=== PATIENT | male | born 1940 | race Caucasian/White ===

== ENCOUNTER 2018-02-06 11:03 | Outpatient (CLI) | payer MEDICARE ==
--- NOTE | 2018-02-06 15:06 | MRI ---
MRI LUMBAR SPINE: 02/06/2018 HISTORY: Back pain. Intervertebral disk disorder with radiculopathy. COMPARISON: None. TECHNIQUE: Multiplanar, multisequence MR imaging of the lumbar spine is provided without contrast. FINDINGS: No focal area of STIR hyperintensity seen to suggest the presence of fracture. There is a Schmorl's node involving the inferior endplate of the L2 vertebral body with adjacent increased STIR signal, erickson ggesting associated degenerative edema. No significant anterolisthesis or retrolisthesis is noted. Assuming five lumbar type vertebral bodies, the conus medullaris terminates at the T12-L1 level. T11-T12: Disk space narrowing and disk desiccation. There is mild disk bulge with small central dis k protrusion. There is mild bilateral facet hypertrophy and anterior osteophyte formation. No signi ficant central canal or neural foraminal stenosis. Benign hemangioma noted at the T12 level. T12-L1: Disk space narrowing and disk desiccation with anterior osteophyte formation noted. There i s a small foraminal protrusion on the left. There is no significant central canal or neural foramina l stenosis. L1-L2: Moderate bilateral facet hypertrophy, left greater than right. There is disk space narrowing , disk desiccation, and anterior osteophyte formation. There is a foraminal disk protrusion on the l eft, There is no significant central canal or neural foraminal stenosis. L2-L3: There is severe bilateral facet hypertrophy with hypertrophy of the ligamentum flavum. There is disk bulge with a moderate degree of central canal stenosis secondary to disk bulge and ligamentu m flavum hypertrophy. There is mild neural foraminal stenosis on the left. No significant right maribell ral foraminal stenosis. L3-L4: Moderate bilateral facet hypertrophy and hypertrophy of the ligamentum flavum. There is disk space narrowing, disk desiccation, and mild disk bulge. No significant central canal or neural fora juno stenosis. L4-L5: Significant facet hypertrophy is noted, right greater than left. There is disk space narrowi ng and disk desiccation with disk bulge present. There is severe right neural foraminal stenosis. T here is mild left neural foraminal stenosis. There is no significant central canal stenosis. L5-S1: No central canal or neural foraminal stenosis. There may be a transitional vertebral body at the lumbosacral junction, which is labeled L5 for the p urposes of this exam. The imaged retroperitoneal structures demonstrate a probable small cyst within the lower pole left ki dnhal on image 19. IMPRESSION: Multilevel degenerative change noted within the lumbar spine, as detailed above. Please see the imag es on PACS regarding numbering of the vertebral bodies, as there may be a transitional vertebral body at the lumbosacral junction. The most significant degenerative change includes central canal stenos is at L2-L3 and right sided neural foraminal stenosis at L4-L5. POS: PATRICIA
--- NOTE | 2018-02-06 15:26 | RAD ---
FOUR VIEWS OF THE LUMBAR SPINE: DATE: 02/06/18. HISTORY: Spondylosis of lumbar spine. FINDINGS: Frontal imaging demonstrates prominent multilevel disk space narrowing throughout the lumbar spine wi th lateral multilevel osteophyte formation. The neutral lateral examination demonstrates retrolisthe sis of L2 on L3 measuring 7-8 mm. There is multilevel upper lumbar spine disk space narrowing with d egenerative end plate change and anterior osteophyte formation. Post flexion, the retrolisthesis of L2 on L3 measures 6-7 mm and with extension the retrolisthesis at L2-3 measures approximately 1 cm. No acute fracture. IMPRESSION: Prominent multilevel degenerative change as above. POS: PATRICIA
== END 2018-02-06 11:04 | disposition home or self-care (01) ==
LOC: MRI 11:03
PROVIDERS: ATTEND Specialist
DX: M51.46 Schmorl's nodes, lumbar region (principal); M47.26 Other spondylosis with radiculopathy, lumbar region; M48.061 Spinal stenosis, lumbar region without neurogenic claudication; M99.83 Other biomechanical lesions of lumbar region
CPT/HCPCS: 72120; 72148

== ENCOUNTER 2019-07-15 22:41 | Emergency (ER) | payer MEDICARE ==
--- NOTE | 2019-07-15 23:40 | RAD ---
Exam:4 views left elbow HISTORY: Pain. COMPARISON: None FINDINGS: No joint effusion. No fracture. No malalignment. IMPRESSION: No fracture.
== END 2019-07-16 00:08 | disposition home or self-care (01) ==
LOC: ERS 22:41
DX: S53.402A Unspecified sprain of left elbow, initial encounter (principal); E11.9 Type 2 diabetes mellitus without complications; E78.5 Hyperlipidemia, unspecified; Z79.4 Long term (current) use of insulin; Z79.899 Other long term (current) drug therapy; X58.XXXA Exposure to other specified factors, initial encounter

== ENCOUNTER 2019-08-12 08:41 | Outpatient (CLI) | payer MEDICARE ==
--- NOTE | 2019-08-12 10:06 | MRI ---
MRI LEFT ELBOW: DATE: 08/12/2019. PROVIDED CLINICAL HISTORY: Elbow pain. FINDINGS: There is full-thickness retracted tearing of the biceps from the radial insertion with retraction of about 4 cm to the level of the joint line. The brachialis and triceps insertions appear normal. There is low-grade partial thickness undersurface tearing involving the anterior aspect of the common extensor tendon origin. The common flexor tendon appears intact. The medial and lateral elbow ligaments appear intact. No focal articular cartilage defect is apparen t. The amount of fluid within the elbow joint appears physiologic. No focal concerning regional marrow signal abnormality is evident. There is high-grade partial thick ness myofascial tearing involving the cranial and central aspects of the supinator muscle. Regional muscular signal appears otherwise unremarkable as visualized. IMPRESSION: 1. Full-thickness retracted biceps tendon insertion disruption. 2. Low-grade partial thickness undersurface tear involving common extensor tendon origin. 3. High-grade partial thickness myofascial tearing involving supinator muscle. POS: OFF
== END 2019-08-12 08:42 | disposition home or self-care (01) ==
LOC: BICMRI 08:41
PROVIDERS: ATTEND Orthopaedic Surgery
DX: S46.212A Strain of muscle, fascia and tendon of other parts of biceps, left arm, initial encounter (principal)

== ENCOUNTER 2019-08-15 11:21 | Outpatient (CLI) | payer MEDICARE ==
[2019-08-15 12:33] LABS: #Eosinphils 0.6 thou/uL (0.0-0.7); #Lymphocytes 1.5 thou/uL (1.20-3.40); #Monocytes 0.7 thou/uL (0.11-0.59); %Basophils 0.2 % (0.0-1.0); %Eosinophils 5.5 % (0.0-10.0); %Lymphocytes 13.5 % (21.0-51.0); %Monocytes 6.8 % (0.0-10.0); Hemoglobin 14.5 g/dL (14.0-18.0); Mean Corpuscular HGB CONC 32.7 g/dL (32.0-36.0); Mean Corpuscular Hemoglobin 30.4 pg (27.0-31.0); Mean Corpuscular Volume 92.8 fL (78.0-98.0); Mean Platelet Volume 9.7 fL (7.4-10.4); Platelet Count 199 thou/uL (130-400); RBC Distribution Width 11.5 % (11.5-14.5); Red Blood Cell (RBC) Count 4.79 mill/uL (4.70-6.10); White Blood Cell (WBC) Count 10.7 thou/uL (4.8-10.8)
[2019-08-15 13:06] LABS: Anion Gap 15 mmol/L (10-20); BUN (Urea Nitrogen) 18 mg/dL (8.4-25.7); Calc. Creatinine Clearance 0 mL/min (70-130); Calcium 9.2 mg/dL (7.8-10.44); Carbon Dioxide 23 mmol/L (23-31); Chloride 103 mmol/L (98-107); Estimated GFR-MDRD 76; Glucose 116 mg/dL (83-110); Potassium 4.9 mmol/L (3.5-5.1); Sodium 136 mmol/L (136-145)
--- NOTE | 2019-08-19 10:30 | EKG ---
Test Reason : Blood Pressure : / mmHG Vent. Rate : 056 BPM Atrial Rate : 056 BPM P-R Int : 172 ms QRS Dur : 114 ms QT Int : 486 ms P-R-T Axes : 004 -41 029 degrees QTc Int : 468 ms Sinus bradycardia Left axis deviation Abnormal ECG No previous ECGs available Confirmed by LISBET OLIVA, DENIZ ([id number]) on 08/19/2019 10:29:47 AM Referred By: CHARLI Confirmed By:DENIZ FRAUSTO MD
== END 2019-08-15 11:22 | disposition home or self-care (01) ==
LOC: LABBT 11:21
PROVIDERS: ATTEND Orthopaedic Surgery
DX: Z01.818 Encounter for other preprocedural examination (principal); S46.212A Strain of muscle, fascia and tendon of other parts of biceps, left arm, initial encounter
CPT/HCPCS: 80048; 85025; 93005; 93010

== ENCOUNTER 2019-08-19 07:44 | Day surgery (SDC) | payer MEDICARE ==
[2019-08-15 11:47] VITALS: BMI 33.0
[2019-08-19] MEDS ORDERED: Fentanyl 100 MCG/2 ML VIAL ONE (08:37)
[2019-08-19] MEDS ORDERED: Ropivacaine 0.2% HCl/PF 20 ML ONE (08:37)
[2019-08-19] MEDS ORDERED: Midazolam HCl 2 mg/2 ml Vial ONE (08:37)
[2019-08-19] MEDS ORDERED: Zolpidem Tartrate 5 MG TAB PO PRN (08:50)
[2019-08-19] MEDS ORDERED: Ketorolac Tromethamine 30 MG/ML VIAL IVP PRN (08:50)
[2019-08-19] MEDS ORDERED: Fentanyl 100 MCG/2 ML VIAL IV PRN (08:50)
[2019-08-19] MEDS ORDERED: Promethazine HCl 25 MG/ML VIAL IM PRN (08:50)
[2019-08-19] MEDS ORDERED: HYDROcodone/Acetaminophen 10/325 mg Tablet PO PRN ×2 (08:50)
[2019-08-19] MEDS ORDERED: Ondansetron PF 4 MG/2 ML Vial IVP PRN (08:50)
[2019-08-19] MEDS ORDERED: traMADol HCl 50 MG TAB PO PRN ×2 (08:50)
[2019-08-19] MEDS ORDERED: Ropivacaine 0.2% 550 ML 550 ML NERVE BLCK SCH (08:50)
--- NOTE | 2019-08-19 17:48 | OP ---
DATE OF PROCEDURE: 08/19/2019 PREOPERATIVE DIAGNOSIS: Left distal biceps tendon traumatic subacute rupture. POSTOPERATIVE DIAGNOSIS: Left distal biceps tendon traumatic subacute rupture. PROCEDURE PERFORMED: Open primary repair, left distal biceps tendon. LITERARY WRITER: Maximus Menon PA-C ANESTHESIA: General via LMA. COMPONENTS USED: Arthrex distal biceps implant, lateral cortex anchor. TOURNIQUET TIME: 36 minutes at 250 mmHg. FINDINGS: Left distal biceps rupture as noted on MRI. DRAINS: None. SPECIMENS: None. COMPLICATIONS: None. COUNTS: Correct. INDICATION FOR SURGERY: Alison is a 79-year-old white male, who was trying to catch his approximately 4 weeks ago, ruptured his left distal biceps. He was seen in clinic and evaluated with an MR, which demonstrated a retracted biceps tendon, and therefore, he has elected to proceed with open primary repair as definitive treatment of this problem. DESCRIPTION OF PROCEDURE: After informed consent was obtained in the preoperative holding area, the patient received preoperative antibiotics, taken to the operative suite, and general anesthesia was induced. An LMA was placed. Once adequate anesthesia was obtained, the patient was positioned appropriately in a supine position. The left upper extremity was then prepped and draped in usual sterile fashion, and well-padded tourniquet was placed on the left proximal brachium. Prior to exsanguination, a time-out was called. All members of the surgical team agreed upon site, surgeon, and patient. Once this was completed, the tourniquet was raised, where it remained for the next 36 minutes prior to closure. A lazy-S incision was made over the antecubital fossa. We used Bovie electrocautery to control local bleeding. Blunt dissection was carried down to the proximal radius. The rupture was found within 5 to 10 minutes of exploration. We used a FiberLoop to lasso the distal biceps after it was debrided. The proximal radius was then identified, supinated. A 4 mm pin was then drilled through and through. We used the 7 mm reamer to make a bowl in the footprint. The distal lateral cortex anchor was then passed through the sutures, which was then passed through the proximal radius through and through and anchored on the far lateral side. The biceps was then pulled down into place. It was stitched x2, and a knot was tied over the top, and it was felt to be quite secure. Copious irrigation was then carried out in the full length of the wound. Primary closure was accomplished with 2-0 interrupted subcuticular stitches, and stainless steel abeba were used to reapproximate the skin. Sterile dressing was applied, and the patient was placed in a long-arm splint in 90 degrees of flexion. The procedure was terminated without any complication. The patient was awakened, and LMA was removed. He was taken to recovery room in stable condition. Job ID: [id number]
== END 2019-08-19 16:15 | disposition home or self-care (01) ==
LOC: SDC 07:44
PROVIDERS: ATTEND Orthopaedic Surgery
PROC: 0LM40ZZ Reattachment of Left Upper Arm Tendon, Open Approach (ICD-10-PCS; principal; 2019-08-19)
DX: S46.212A Strain of muscle, fascia and tendon of other parts of biceps, left arm, initial encounter (principal); E11.9 Type 2 diabetes mellitus without complications; I10 Essential (primary) hypertension; I48.91 Unspecified atrial fibrillation; G47.30 Sleep apnea, unspecified; M10.9 Gout, unspecified; M19.90 Unspecified osteoarthritis, unspecified site; Z79.01 Long term (current) use of anticoagulants; Z79.4 Long term (current) use of insulin; Z79.899 Other long term (current) drug therapy; Z88.5 Allergy status to narcotic agent; Z88.8 Allergy status to other drugs, medicaments and biological substances; Z91.19 Patient's noncompliance with other medical treatment and regimen; X58.XXXA Exposure to other specified factors, initial encounter
CPT/HCPCS: 24342; A4306; J0690; J2250; J2795; J3010

== ENCOUNTER 2019-09-26 15:12 | Emergency (ER) | payer MEDICARE ==
[2019-09-26 16:16] LABS: #Basophils 0.1 thou/uL (0.0-0.2); #Eosinphils 0.3 thou/uL (0.0-0.7); #Monocytes 0.8 thou/uL (0.11-0.59); #Neutrophils 8.7 thou/uL (1.40-6.50); %Basophils 0.6 % (0.0-1.0); %Eosinophils 2.3 % (0.0-10.0); %Lymphocytes 16.8 % (21.0-51.0); %Monocytes 6.7 % (0.0-10.0); %Neutrophils 73.6 % (42.0-75.0); Hemoglobin 13.9 g/dL (14.0-18.0); Mean Corpuscular HGB CONC 32.5 g/dL (32.0-36.0); Mean Corpuscular Hemoglobin 29.7 pg (27.0-31.0); Mean Corpuscular Volume 91.2 fL (78.0-98.0); Mean Platelet Volume 9.6 fL (7.4-10.4); Platelet Count 194 thou/uL (130-400); RBC Distribution Width 11.7 % (11.5-14.5); Red Blood Cell (RBC) Count 4.69 mill/uL (4.70-6.10); White Blood Cell (WBC) Count 11.9 thou/uL (4.8-10.8)
[2019-09-26 16:35] LABS: ALT (SGPT) 16 U/L (8-55); AST (SGOT) 19 U/L (5-34); Alkaline Phosphatase 55 U/L (40-110); Anion Gap 11 mmol/L (10-20); BUN (Urea Nitrogen) 21 mg/dL (8.4-25.7); Bilirubin, Total 0.3 mg/dL (0.2-1.2); Calc. Creatinine Clearance 0 mL/min (70-130); Calcium 9.3 mg/dL (7.8-10.44); Carbon Dioxide 28 mmol/L (23-31); Chloride 102 mmol/L (98-107); Estimated GFR-MDRD 65; Globulin 3.4 g/dL (2.4-3.5); Glucose 171 mg/dL (83-110); Potassium 4.4 mmol/L (3.5-5.1); Protein, Total 7.4 g/dL (5.8-8.1); Sodium 137 mmol/L (136-145)
[2019-09-26 17:22] LABS: Bacteria/HPF None Seen HPF (None Seen); Bilirubin Negative (Negative); Blood, Urine 2+ (Negative); Clarity Clear (Clear); Glucose, Urine (Dipstick) Normal (Negative); Leukocyte Negative Leu/uL (Negative); Nitrite Negative (Negative); Protein, Urine (Dipstick) 50 mg/dL (Neg-Trace); RBC/HPF 21-50 HPF (0-3); Squamous Epithelial None Seen HPF (0-3); Urobilinogen Normal mg/dL (Less than 2); WBC/HPF 0-3 HPF (0-3)
== END 2019-09-26 17:53 | disposition home or self-care (01) ==
LOC: ERS 15:12
DX: R31.9 Hematuria, unspecified (principal); I49.9 Cardiac arrhythmia, unspecified; I48.91 Unspecified atrial fibrillation; E11.9 Type 2 diabetes mellitus without complications; E78.5 Hyperlipidemia, unspecified; E78.00 Pure hypercholesterolemia, unspecified; I10 Essential (primary) hypertension; Z79.4 Long term (current) use of insulin; Z87.891 Personal history of nicotine dependence; Z79.899 Other long term (current) drug therapy
CPT/HCPCS: 36415; 80053; 81003; 81015; 85025; 87086; 99283

== ENCOUNTER 2019-12-22 15:34 | Emergency (ER) | payer MEDICARE ==
--- NOTE | 2019-12-22 15:59 | RAD ---
EXAM: Chest one view: HISTORY: Chest pain COMPARISON: 01/02/2019 FINDINGS: Heart size: Within normal limits. Lungs: Clear of acute process. No evidence for confluent pneumonia, pleural effusion, acute edema, or pneumothorax, or other signifi cant acute process. IMPRESSION: No significant acute intrathoracic disease.
[2019-12-22 16:02] LABS: #Basophils 0.1 thou/uL (0.0-0.2); #Eosinphils 0.4 thou/uL (0.0-0.7); #Lymphocytes 2.8 thou/uL (1.20-3.40); #Monocytes 1.1 thou/uL (0.11-0.59); #Neutrophils 8.3 thou/uL (1.40-6.50); %Basophils 0.5 % (0.0-1.0); %Eosinophils 3.1 % (0.0-10.0); %Lymphocytes 22.3 % (21.0-51.0); %Monocytes 8.5 % (0.0-10.0); %Neutrophils 65.7 % (42.0-75.0); Mean Corpuscular HGB CONC 33.1 g/dL (32.0-36.0); Mean Corpuscular Volume 90.6 fL (78.0-98.0); Platelet Count 207 thou/uL (130-400); RBC Distribution Width 12.3 % (11.5-14.5); Red Blood Cell (RBC) Count 4.99 mill/uL (4.70-6.10); White Blood Cell (WBC) Count 12.6 thou/uL (4.8-10.8)
[2019-12-22 16:23] LABS: ALT (SGPT) 17 U/L (8-55); AST (SGOT) 20 U/L (5-34); Albumin 4.2 g/dL (3.4-4.8); Alkaline Phosphatase 55 U/L (40-110); Anion Gap 12 mmol/L (10-20); BUN (Urea Nitrogen) 26 mg/dL (8.4-25.7); Bilirubin, Total 0.3 mg/dL (0.2-1.2); Calc. Creatinine Clearance 0 mL/min (70-130); Calcium 9.9 mg/dL (7.8-10.44); Carbon Dioxide 28 mmol/L (23-31); Chloride 101 mmol/L (98-107); Estimated GFR-MDRD 48; Globulin 3.4 g/dL (2.4-3.5); Glucose 128 mg/dL (83-110); Potassium 4.3 mmol/L (3.5-5.1); Protein, Total 7.6 g/dL (5.8-8.1); Sodium 137 mmol/L (136-145)
--- NOTE | 2019-12-27 15:48 | EKG ---
Test Reason : Blood Pressure : / mmHG Vent. Rate : 069 BPM Atrial Rate : 069 BPM P-R Int : 172 ms QRS Dur : 116 ms QT Int : 450 ms P-R-T Axes : 039 -44 053 degrees QTc Int : 482 ms Sinus rhythm with frequent Premature ventricular complexes in a pattern of bigeminy Left axis deviation Incomplete left bundle branch block Prolonged QT Abnormal ECG Ventricular bigeminy Confirmed by REBEKA OLIVA, JENNIFER ([id number]), index editor ANNELIESE COWART ([id number]) on 12/27/2019 3:48:32 PM Referred By: Confirmed By:JENNIFER STALEY MD
== END 2019-12-22 17:00 | disposition home or self-care (01) ==
LOC: ERS 15:34
DX: I49.8 Other specified cardiac arrhythmias (principal); I48.91 Unspecified atrial fibrillation; E11.9 Type 2 diabetes mellitus without complications; E78.5 Hyperlipidemia, unspecified; E78.00 Pure hypercholesterolemia, unspecified; I10 Essential (primary) hypertension; Z87.891 Personal history of nicotine dependence; Z79.84 Long term (current) use of oral hypoglycemic drugs; Z79.4 Long term (current) use of insulin; Z79.01 Long term (current) use of anticoagulants; Z79.899 Other long term (current) drug therapy
CPT/HCPCS: 36415; 71045; 80053; 83880; 84443; 84484; 85025; 93005; 96360

== ENCOUNTER 2020-01-07 19:30 | Outpatient (CLI) | payer MEDICARE | END 2020-01-07 19:31 | disposition home or self-care (01) | LOC: SLEEPLAB 19:30 | PROVIDERS: ATTEND Internal Medicine | DX: G47.33 Obstructive sleep apnea (adult) (pediatric) (principal); I10 Essential (primary) hypertension; G47.10 Hypersomnia, unspecified; E11.40 Type 2 diabetes mellitus with diabetic neuropathy, unspecified; G47.00 Insomnia, unspecified; I49.3 Ventricular premature depolarization; R00.8 Other abnormalities of heart beat | CPT/HCPCS: 95811 ==

== ENCOUNTER 2021-11-27 03:21 | Emergency (ER) | payer MEDICARE | END 2021-11-27 03:50 | disposition home or self-care (01) | LOC: ERS 03:21 | DX: H72.92 Unspecified perforation of tympanic membrane, left ear (principal); I48.91 Unspecified atrial fibrillation; E11.9 Type 2 diabetes mellitus without complications; Z79.4 Long term (current) use of insulin; E78.5 Hyperlipidemia, unspecified; I10 Essential (primary) hypertension; Z87.891 Personal history of nicotine dependence | CPT/HCPCS: 99282 ==